=== PATIENT | male | born 1935 | race Caucasian/White ===

== ENCOUNTER 2019-03-18 05:11 | Day surgery (SDC) | payer MEDICAID ==
[~2019-03-18] VITALS: Ht 160 cm; Wt 54.4 kg
[2019-03-18] MEDS ORDERED: LACTATED RINGERS 1,000 ML IV SCH (06:30)
[2019-03-18] MEDS ORDERED: MITOMYCIN 0.2 MG KIT OP SCH (06:45)
[2019-03-18] MEDS ORDERED: TRIAMCINOLONE ACETONIDE 40MG/ML 1ML VIAL ONE (07:06)
[2019-03-18] MEDS ORDERED: LIDOCAINE HCL/PF 1% 10 MG/ML 5ML VIAL ONE (07:56)
[2019-03-18] MEDS ORDERED: SUCCINYLCHOLINE CHLORIDE 200MG/10ML IV ONE (07:56)
[2019-03-18] MEDS ORDERED: MIDAZOLAM HCL 2 MG/2 ML VIAL ONE ×2 (07:56→07:58)
[2019-03-18] MEDS ORDERED: PROPOFOL 200MG/20ML VIAL IV ONE (07:56)
[2019-03-18] MEDS ORDERED: ALBU18HF2 IH (08:28)
[2019-03-18] MEDS ORDERED: CYAN-33 PO (08:28)
[2019-03-18] MEDS ORDERED: MULT-1203 PO (08:28)
[2019-03-18] MEDS ORDERED: TIOT18CA3 IH (08:28)
[2019-03-18] MEDS ORDERED: SODIUM CHLORIDE 0.9% 1,000 ML IV ONE (08:54)
[2019-03-18] MEDS ORDERED: ONDANSETRON HCL 4MG/2ML INJ IV PRN (09:00)
[2019-03-18] MEDS ORDERED: HYDROMORPHONE HCL/PF 2MG/ML CPJ IV PRN (09:00)
[2019-03-18] MEDS ORDERED: IBUPROFEN 600MG TABLET PO NR (09:00)
[2019-03-18] MEDS ORDERED: TETRACAINE 0.5% OPHTH DROPS 4ML ONE (14:04)
[2019-03-18] MEDS ORDERED: BALANCED SALT IRRIG SOLN 15ML ONE (14:04)
[2019-03-18] MEDS ORDERED: BUPIVACAINE HCL/PF 0.75% (7.5MG/ML) 10ML ONE (14:04)
[2019-03-18] MEDS ORDERED: NEO/POLYMYX B SULF/DEXAMETH OPHTH OINT 3.5GM ONE (14:04)
[2019-03-18] MEDS ORDERED: LIDOCAINE HCL 2%/EPINEPHRINE 1:100,000 20 ML VIAL INFIL ONE (14:04)
[2019-03-18] MEDS ORDERED: CIPROFLOXACIN 0.3% OPHTH SOLN 2.5ML ONE (14:04)
[2019-03-18] MEDS ORDERED: PREDNISOLONE ACETATE 1% OPHTH DROPS 1ML ONE (14:04)
== END 2019-03-18 10:05 | disposition home or self-care (01) ==
LOC: OR 05:11
PROVIDERS: ATTEND Ophthalmology
DX: H02.101 Unspecified ectropion of right upper eyelid (principal); H02.105 Unspecified ectropion of left lower eyelid; H02.104 Unspecified ectropion of left upper eyelid; J44.9 Chronic obstructive pulmonary disease, unspecified; F17.210 Nicotine dependence, cigarettes, uncomplicated; Z79.899 Other long term (current) drug therapy; Z90.49 Acquired absence of other specified parts of digestive tract; Z98.890 Other specified postprocedural states
CPT/HCPCS: 67917; J0330; J2250; J2704; J3490; J3301; J9280

== ENCOUNTER 2019-05-13 05:49 | Day surgery (SDC) | payer MEDICAID ==
[~2019-05-13] VITALS: Ht 167.6 cm; Wt 54.4 kg
[~2019-05-13 05:49] MED LIST: ALBU18HF2 IH; CYAN-33 PO; MULT-1203 PO; TIOT18CA3 IH
[2019-05-13] MEDS ORDERED: PHENYLEPHRINE HCL 10% OPHTH DROPS 5ML RIGHTEYE SCH (06:00)
[2019-05-13] MEDS ORDERED: CYCLOPENTOLATE HCL 1% OPHTH DROPS 2ML RIGHTEYE SCH (06:00)
[2019-05-13] MEDS ORDERED: TROPICAMIDE 1% OPHTH DROPS 15ML RIGHTEYE SCH (06:00)
[2019-05-13] MEDS ORDERED: LACTATED RINGERS 1,000 ML IV SCH (06:30)
[2019-05-13 06:37] LABS: BASOPHILS % 0.5 % (0.0-2.0); EOSINOPHILS % 6.7 % (0.0-5.0); HEMATOCRIT. 42.1 % (42.0-52.0); HEMOGLOBIN. 14.5 g/dL (14.0-18.0); LYMPHOCYTES % 30.9 % (20.0-50.0); MEAN CORPUSCULAR VOLUME 96.1 fL (80.0-94.0); MEAN PLATELET VOLUME 8.4 fl (7.4-10.4); MONOCYTES % 10.5 % (2.0-8.0); NEUTROPHILS % 51.4 % (40.0-76.0); PLATELET 151 x1000/uL (130-400); RED BLOOD CELL COUNT 4.38 mill/uL (4.7-6.1); RED CELL DISTRIBUTION WIDTH 14.1 % (11.6-14.6)
[2019-05-13] MEDS ORDERED: DIPHENHYDRAMINE 50MG/ML VIAL ONE (06:38)
[2019-05-13] MEDS ORDERED: FENTANYL CITRATE/PF 50MCG/ML 2ML VIAL ONE (06:38)
[2019-05-13] MEDS ORDERED: MIDAZOLAM HCL 2 MG/2 ML VIAL ONE (06:38)
[2019-05-13 06:44] LABS: CHLORIDE 105 mEq/L (98-107)
[2019-05-13] MEDS ORDERED: HYALURONATE SODIUM 14 MG/ML 0.85ML SYRINGE IO ONE (06:54)
[2019-05-13] MEDS ORDERED: BALANCED SALT IRRIG SOLN COMB1 500ML OP SCH (07:00)
[2019-05-13] MEDS ORDERED: PROPOFOL 200MG/20ML VIAL IV ONE (07:51)
[2019-05-13] MEDS ORDERED: LIDOCAINE HCL/PF 1% 10 MG/ML 5ML VIAL ONE (07:51)
[2019-05-13] MEDS ORDERED: GLYCOPYRROLATE 0.2 MG/ML 2ML VIAL ONE (08:05)
[2019-05-13] MEDS ORDERED: HYDROMORPHONE HCL/PF 2MG/ML CPJ IV PRN (08:45)
[2019-05-13] MEDS ORDERED: BUPIVACAINE HCL/PF 0.75% (7.5MG/ML) 10ML ONE (13:16)
[2019-05-13] MEDS ORDERED: LIDOCAINE HCL/PF 2% 20 MG/ML 10ML VIAL ONE (13:16)
[2019-05-13] MEDS ORDERED: BALANCED SALT IRRIG SOLN 15ML ONE (13:16)
[2019-05-13] MEDS ORDERED: TETRACAINE 0.5% OPHTH DROPS 4ML ONE (13:16)
[2019-05-13] MEDS ORDERED: CIPROFLOXACIN 0.3% OPHTH SOLN 2.5ML ONE (13:16)
[2019-05-13] MEDS ORDERED: PREDNISOLONE ACETATE 1% OPHTH DROPS 1ML ONE (13:16)
[2019-05-13] MEDS ORDERED: LIDOCAINE HCL 2%/EPINEPHRINE 1:100,000 20 ML VIAL INFIL ONE (13:16)
== END 2019-05-13 09:45 | disposition home or self-care (01) ==
LOC: OR 05:49
PROVIDERS: ATTEND Ophthalmology
DX: H25.89 Other age-related cataract (principal); J44.9 Chronic obstructive pulmonary disease, unspecified; Z87.891 Personal history of nicotine dependence; Z90.49 Acquired absence of other specified parts of digestive tract
CPT/HCPCS: 36415; 66984; 80048; 82962; 85025; J1200; J2250; J2704; J3010; J3490; V2632